=== PATIENT | male | born 1970 | race Caucasian/White ===

== ENCOUNTER 2024-08-04 07:44 | Day surgery (SDC) | payer BC ==
[~2024-08-04] VITALS: Ht 162.6 cm; Wt 83.9 kg
[~2024-08-04 07:44] MED LIST: ADVIL200 MG PO; MAG-OXIDE200 MG PO; MELATONIN3 M1 PO; MULTI VIT PO
[2024-08-04] MEDS ORDERED: SODIUM CHLORIDE 0.9% 1,000 ML IV ONE (07:59)
[2024-08-04] MEDS ORDERED: FAMOTIDINE 10MG/ML 2ML SDV IV ONE (07:59)
[2024-08-04 10:10] VITALS: BP 128/82
[2024-08-04] MEDS ORDERED: LIDOCAINE HCL 2% 2ML SDV IV ONE (11:19)
[2024-08-04] MEDS ORDERED: PROPOFOL 200 MG/20 ML VIAL IV ONE (11:19)
[2024-08-04] MEDS ORDERED: GLYCOPYRROLATE 0.2 MG/ML IV ONE (11:19)
== END 2024-08-04 10:01 | disposition home or self-care (01) | DRG 951 ==
LOC: ENDO 07:44 → ORM 08:45 → ENDO 09:10 → ORM 09:50 → ENDO 09:50
PROVIDERS: ATTEND Surgery
PROC: 0DBN8ZX Excision of Sigmoid Colon, Via Natural or Artificial Opening Endoscopic, Diagnostic (ICD-10-PCS; principal; 2024-08-04)
DX: Z12.11 Encounter for screening for malignant neoplasm of colon (principal); K57.32 Diverticulitis of large intestine without perforation or abscess without bleeding; K63.5 Polyp of colon; K21.9 Gastro-esophageal reflux disease without esophagitis; F17.210 Nicotine dependence, cigarettes, uncomplicated
CPT/HCPCS: J1596